=== PATIENT | male | born 1945 | race American Indian/Alaskan Native ===

== ENCOUNTER 2021-01-28 09:25 | Outpatient (CLI) | payer OTHER ==
--- NOTE | 2021-01-28 10:33 | Cat Scan Report ---
CT ABDOMEN AND PELVIS WITHOUT CONTRAST HISTORY: Malignant neoplasm of the prostate. COMPARISON: None. TECHNIQUE: CT images of the abdomen and pelvis were obtained without administration of intravenous co ntrast. All CT scans at this location are performed using CT dose reduction for ALARA by means of au tomated exposure control. FINDINGS: Limited evaluation of the lung bases is unremarkable. The prostate is enlarged measuring up to 5.5 cm in transverse dimension. Fairly circumscribed borders of the prostate are appreciated without definite evidence of soft tissue extension within the limits of this noncontrast exam. No enlarged lymph nodes within the abdomen and pelvis to suggest the prese nce of jimmy disease. Atrophic appearance of the pancreas with coarse calcifications consistent with changes from chronic p ancreatitis. The liver, kidneys, spleen, adrenal glands, and gallbladder are unremarkable. Gastrointestinal tract shows no evidence of bowel wall thickening or pathologic distention. There are no pathologically enla rged lymph nodes. No free intraperitoneal gas or fluid. The appendix is visualized and is normal in appearance. Urinary bladder is unremarkable. Osseous structures show no evidence of acute fracture or aggressive osseous destructive lesion. The lack of intravenous and oral contrast limits evaluation of solid parenchymal organs, vasculature, and gastrointestinal tract. IMPRESSION: Enlarged prostate measuring up to 5.5 cm in transverse dimension. No evidence of metastatic or jimmy disease within the abdomen and pelvis in this patient with reported malignant neoplasm of the prostat e. Atrophic appearance of the pancreas with coarse calcifications consistent with changes from chronic p ancreatitis. Signer Name: Major Ross MD Signed: 01/28/2021 10:29 AM Workstation Name: [id number]
--- NOTE | 2021-01-28 16:12 | Nuclear Medicine Report ---
NUCLEAR MEDICINE BONE SCAN, WHOLE BODY INDICATION: C61. Prostate cancer staging exam TECHNIQUE: 26.1 mCi of Tc-99m MDP were injected IV. Whole body images were obtained. COMPARISON: CT abdomen/pelvis from today. FINDINGS: Skeletal Structures/Lesions: Radiotracer uptake is seen in the spine and shoulders most likely in rodriguez ping with degenerative change. Small amount of extravasation is seen along the left antecubital fossa . Soft Tissues: Normal. Kidneys: Normal, symmetric activity. Additional Findings: None. IMPRESSION: 1. No metastatic disease identified. Signer Name: Raúl Ramírez MD Signed: 01/28/2021 4:07 PM Workstation Name: [id number]
== END 2021-01-28 09:26 | disposition home or self-care (01) ==
LOC: NM 09:25
PROVIDERS: ATTEND Urology
DX: C61 Malignant neoplasm of prostate (principal); N40.0 Benign prostatic hyperplasia without lower urinary tract symptoms; K76.89 Other specified diseases of liver
CPT/HCPCS: 74176; 78306; A9503